=== PATIENT | female | born 1990 | race Caucasian/White ===

== ENCOUNTER 2022-10-19 10:02 | Emergency (ER) | payer OTHER, SELFPAY ==
[2022-10-19 10:10] VITALS: BP 104/78; PULSE 90; RESP 16; TEMP 36.6; O2SAT 99
--- NOTE | 2022-10-19 10:46 | ED.URI ---
HPI - URI/Sore Throat General Chief Complaint: Upper Respiratory Infection Stated Complaint: sore throat, body ache Time Seen by Provider: 10/19/22 10:15 Source: patient Mode of arrival: ambulatory Limitations: no limitations History of Present Illness HPI Narrative: Shannon is a 31-year-old female patient presenting to the clinic today with complaints of sore throat, body aches, chills x1 day. She reports her symptoms began last night. States that she has had direct exposure was some with influenza MD elicited complaint: sore throat and nasal congestion Related Data Home Medications Medication Instructions Recorded Confirmed sertraline 50 mg tablet 100 mg PO DAILY 04/16/21 levonorgestrel 20 mcg/24 hours (8 1 device intrauterine ONCE 02/03/22 yrs) 52 mg intrauterine device (Mirena) spironolactone 100 mg tablet 100 mg PO DAILY 02/03/22 Allergies Allergy/AdvReac Type Severity Reaction Status Date / Time No Known Allergies Allergy Unknown Verified 10/19/22 10:46 Review of Systems Review of Systems: Pertinent positives per HPI. Patient denies any rash, headache, visual changes, dizziness, shortness of breath, chest pain, palpitations, nausea, vomiting, diarrhea, constipation, abdominal pain, or any urinary issues. PMFSH Past Medical History Medical History Anxiety Surgical History Surgical History H/O eye surgery H/O gynecological procedure mirena iud insertion 2019 Social History Social History Smoking status: Never smoker Second hand tobacco smoke exposure: No Alcohol intake: current Substance use: never Gender identity (if verbalized by the patient): Female Spiritual care concerns: No Comments At the time of my signature, I reviewed and agree with the nursing past medical, surgical, social, and family history. There is no relevant family history pertinent to the patient complaint. Exam Narrative: General: Well-developed, well nourished, in no apparent distress Head: Normocephalic, atraumatic Eyes: Pupils equally round and reactive to light bilaterally, EOM intact, sclera and conjunctive clear, no discharge, lids normal Ears: TMs intact and clear, ear canals clear, no drainage, grossly hearing normal. Nose: Nares patent, clear nasal discharge, no inflammation, no sinus tenderness. Mouth: Oral pharynx without lesions or masses, good dentition, MMM. Oropharynx red with bilateral tonsillar swelling Neck: Supple, trachea midline, mild enlargement of anterior cervical nodes, no thyroid masses or goiter palpable. Cardio: Regular rate and rhythm, s1 and s2 normal, no murmur appreciated. Resp: Clear to auscultation bilaterally, no rhonchi, rales, wheezing or rubs Course Course Emergency Course: Portions of this record may have been created with voice recognition software. Level of Care: Express Care Visit Vital Signs Vital signs: Vital Signs Temperature 36.6 C 10/19/22 10:10 Pulse Rate 90 10/19/22 10:10 Respiratory Rate 16 10/19/22 10:10 Blood Pressure 104/78 10/19/22 10:10 Pulse Oximetry 99 10/19/22 10:10 Temperature 36.6 C 10/19/22 10:10 Pulse Rate 90 10/19/22 10:10 Respiratory Rate 16 10/19/22 10:10 Blood Pressure 104/78 10/19/22 10:10 Pulse Oximetry 99 10/19/22 10:10 Vital signs reviewed MDM - URI/Sore Throat MDM Narrative Medical decision making narrative: At the time of visit patient is resting comfortably on the exam table. Influenza testing and strep culture was obtained. Influenza test was positive for influenza A. Strep culture was sent to the lab. Supportive measures were discussed with the patient she voiced understanding of discharge instructions and agrees to treatment plan. Risk and benefits of Tamiflu was discussed with the patient s
== END 2022-10-19 11:07 | disposition home or self-care (01) ==
PROVIDERS: Emergency Provider Nurse Practitioner Family; PCP Physician Assistant
DX: J10.1 Influenza due to other identified influenza virus with other respiratory manifestations (principal); F41.9 Anxiety disorder, unspecified
CPT/HCPCS: 87081; 87147; 87804; 99213; G0463

== ENCOUNTER 2024-09-18 15:10 | Outpatient (CLI) | payer OTHER, SELFPAY ==
--- NOTE | ~2024-09-18 | XR_ITS ---
EXAMINATION: XR chest 2V 09/18/2024 15:18 INDICATION: Cough PROCEDURE: 2 view chest COMPARISON: No prior studies for comparison. FINDINGS: The lungs are clear. The cardiomediastinal silhouette is within normal limits. There are no pleural effusions. There is no pneumothorax suspected. IMPRESSION: 1: NO ACUTE CARDIOPULMONARY DISEASE. Reviewed, dictated and finalized at location B. [place] [facility]
== END 2024-09-18 15:11 | disposition home or self-care (01) ==
LOC: MICIMG 15:11
PROVIDERS: PCP Physician Assistant; Visit Provider Physician Assistant
DX: R05.9 Cough, unspecified (principal)
CPT/HCPCS: 71046